=== PATIENT | female | born 1950 | race Caucasian/White ===

== ENCOUNTER 2018-10-09 06:24 | Emergency (ER) | payer MEDICARE ==
[2018-10-09 06:54] VITALS: RESP 20; TEMP 97.5
--- NOTE | 2018-10-09 07:34 | ED ---
General Adult HPI - General Chief complaint: Head Injury Stated complaint: Fall/Head Injury/Nausea Time Seen by Provider: 10/09/18 07:05 Source: patient, RN notes reviewed, old records reviewed Mode of arrival: ambulatory Limitations: no limitations - History of Present Illness Initial comments: 68-year-old female presenting for evaluation of fall with head injury. Patient states she slipped on the ice yesterday afternoon striking the back of her head. With momentary loss consciousness. She states she was able to stand, walk home. She rested throughout the afternoon and evening. This morning she woke with dizziness and nausea as well as dry heaving. Patient denied significant headache. Denied vision changes. Denies focal numbness or weakness. Denies neck pain. Denied chest pain or abdominal pain. Denied any extremity injuries, no other pain complaints. Patient is otherwise healthy with no chronic medical problems, no daily medications, no anticoagulation. - Related Data Home Medications Medication Instructions Recorded Confirmed Calcium Carbonate/Vitamin D3 1 each PO 10/09/18 [Calcium 250-D Tablet] Ibuprofen [Motrin Ib] 600 mg PO DAILY 10/09/18 10/09/18 Vits A,C,E/Lutein/Minerals 1 tab PO DAILY 10/09/18 10/09/18 [Ocuvite with Lutein Tablet] Previous Rx's Medication Instructions Recorded Ondansetron Odt [Zofran Odt] 4 mg PO Q8HR PRN #10 tab 10/09/18 Allergies Allergy/AdvReac Type Severity Reaction Status Date / Time No Known Allergies Allergy Verified 10/09/18 07:43 Review of Systems ROS Statement: Those systems with pertinent positive or pertinent negative responses have been documented in the HPI. ROS Other: All systems not noted in ROS Statement are negative. Past Medical History Past Medical History: No Reported History History of Any Multi-Drug Resistant Organisms: None Reported Past Surgical History: Orthopedic Surgery Past Psychological History: No Psychological Hx Reported Smoking Status: Never smoker Past Alcohol Use History: Occasional Past Drug Use History: None Reported General Exam Limitations: no limitations General appearance: alert, in no apparent distress Head exam: Present: atraumatic, normocephalic Eye exam: Present: normal appearance, PERRL, EOMI ENT exam: Present: normal exam Neck exam: Present: normal inspection, full ROM. Absent: tenderness, meningismus Respiratory exam: Present: normal lung sounds bilaterally. Absent: respiratory distress, wheezes Cardiovascular Exam: Present: regular rate, normal rhythm GI/Abdominal exam: Present: soft. Absent: distended, tenderness, guarding, rebound Extremities exam: Present: normal inspection, full ROM, normal capillary refill. Absent: pedal edema Back exam: Present: normal inspection, full ROM. Absent: tenderness, vertebral tenderness Neurological exam: Present: alert, oriented X3, CN II-XII intact. Absent: motor sensory deficit Psychiatric exam: Present: normal affect, normal mood Skin exam: Present: warm, dry, intact Course Vital Signs 10/09/18 06:49 Temperature 97.5 F L Pulse Rate 59 L Respiratory 20 Rate Blood Pressure 125/80 O2 Sat by Pulse 100 Oximetry Medical Decision Making - Medical Decision Making 68-year-old female presenting with head injury which occurred approximately 16 hours to arrival. Patient is well-appearing with stable vitals, and nonfocal neurologic exam, no external signs of trauma. Head CT obtained, negative for intracranial hemorrhage, normal noncontrast head CT reviewed by myself. Patient reevaluated, resting comfortably, drinking in the emergency department without vomiting. Did ambulate the patient, she is steady on her feet. Will be discharged home, return with worsening or changing symptoms. Disposition Clinical Impression: Closed head injury, Concussion with loss of consciousness Disposition: HOME SELF-CARE Condition: Good Instructions (If sedation given, give patient instructions): Concussion (ED) Additional Instructions: Please follow up with primary care physician. Prescriptions: Ondansetron Odt [Zofran Odt] 4 mg PO Q8HR PRN #10 tab PRN Reason: Vomiting Is patient prescribed a controlled substance at d/c from ED?: No Referrals: None,Stated [Primary Care Provider] - 1-2 days Time of Disposition: 07:34
--- NOTE | 2018-10-09 07:39 | CT ---
EXAMINATION TYPE: CT brain wo con DATE OF EXAM: 10/09/2018 COMPARISON: None INDICATION: Slip and fall on ice yesterday. Dizziness and nausea today DLP: 1087.4 mGycm, Automated exposure control for dose reduction was used. CONTRAST: None CT of the brain is performed utilizing 3 mm thick sections through the posterior fossa and 3 mm thick sections through the remaining calvarium. Study is performed within 24 hours of arrival to the hosp [facility]. No abnormal hyperdensity is present to suggest an acute intracranial hemorrhage. No mass lesion is evident. Physiologic basal ganglion calcifications present on the right. No acute infarcts are evident. Ventricles and sulci are appropriate for the patient age. Paranasal sinuses and mastoid air cells within the [id number] are clear. No acute fractures are evident. IMPRESSIONS: 1. Normal CT Brain
[2018-10-09 08:11] VITALS: BP 130/62; PULSE 62
== END 2018-10-09 08:11 | disposition home or self-care (01) ==
LOC: EC 06:24
DX: S06.0X0A Concussion without loss of consciousness, initial encounter (principal); Z79.1 Long term (current) use of non-steroidal anti-inflammatories (NSAID); Z79.899 Other long term (current) drug therapy; W00.0XXA Fall on same level due to ice and snow, initial encounter; Y92.009 Unspecified place in unspecified non-institutional (private) residence as the place of occurrence of the external cause
CPT/HCPCS: 70450; 99284